=== PATIENT | male | born 1950 | race Caucasian/White ===

== ENCOUNTER 2019-05-13 09:46 | Emergency (ER) | payer MEDICARE ==
[~2019-05-13] VITALS: Ht 190.5 cm; Wt 127.0 kg
[2019-05-13] MEDS ORDERED: SODIUM CHLORIDE 0.9% 1000ML 1,000 ML IV ONE (11:00)
--- NOTE | 2019-05-13 11:44 | NUR ---
ATTEMPTED IV START 5 TIMES EACH TIME VEIN BLEW, PLACED COMPRESSION BANDAGE ON VEINS AND HELD PRESSURE. PT TOLERATED WELL. DR PUTNAM ATTEMPTED RIGHT EJ WITH NO SUCCESS, CALLED LIZA LEÓN TO ATTEMPT IV START
[2019-05-13] MEDS ORDERED: SODIUM CHLORIDE 0.9% 1000ML 1,000 ML ONE ×2 (12:18→13:37)
[2019-05-13] MEDS ORDERED: SODIUM CHLORIDE 0.9% 1000ML 1,000 ML IV SCH (14:00)
[2019-05-13 14:15] VITALS: BP 167/104
== END 2019-05-13 14:20 | disposition home or self-care (01) ==
LOC: FSED 09:46
DX: R30.0 Dysuria (principal); N30.90 Cystitis, unspecified without hematuria; E86.0 Dehydration
CPT/HCPCS: 80053; 80076; 81003; 85025; 99283; J7030